=== PATIENT | female | born 1985 | race Caucasian/White ===

== ENCOUNTER → 2016-07-11 | Outpatient (CLI) | payer SELFPAY ==
[~2016-07-11] MED LIST: COLACE100 MG PO; MOTRIN-DPS800 MG PO; MYLICON DPS80 MG PO; NEWMANS NIPPLE CREAM TP; PERCOCET PO; PRENATAL VITAM1 EAC5 PO
== END | disposition home or self-care (01) ==
LOC: RAD.S 13:00
DX: N63 Unspecified lump in breast (principal)